=== PATIENT | female | born 1970 | race Caucasian/White ===

== ENCOUNTER 2020-06-20 14:06 | Emergency (ER) | payer BC ==
[2020-06-20 15:14] LABS: Absolute Lymphocytes (CBC) 0.8 K/uL (0.7-4.9); Basophils % 0.8 % (0-1.3); Lymphocytes % 20.6 % (15.3-44.8); MPV 8.9 fL (7.6-11.3); RBC Red Blood Cell Count 4.77 M/uL (3.86-4.86)
--- NOTE | 2020-06-20 15:26 | RAD REPORT ---
EXAM DESCRIPTION: RAD - Chest Single View - 06/20/2020 2:58 pm CLINICAL HISTORY: Cough;SOB Chest pain. COMPARISON: No comparisons FINDINGS: Portable technique limits examination quality. Small linear opacity in left lung base is likely a small area of atelectasis. No focal infiltrate yanci picious for pneumonia seen. The heart is normal in size. No displaced fractures.
[2020-06-20] MEDS ORDERED: MORPHINE 4 MG/ML SYR ONE (15:28)
[2020-06-20] MEDS ORDERED: NA CHLORIDE 0.9% 1,000 ML ONE (15:28)
[2020-06-20] MEDS ORDERED: ONDANSETRON 4 MG/2 ML VIAL ONE (15:28)
[2020-06-20] MEDS ORDERED: dexAMETHasone 10 MG/ML VIAL ONE (15:28)
[2020-06-20 15:33] LABS: C-Reactive Protein 19.1 mg/L (<3.00); Potassium 3.8 mmol/L (3.5-5.1)
--- NOTE | 2020-06-20 16:32 | EDPHYS ---
Physician Documentation [facility] Name: Johana Packer Age: 50 yrs Sex: Female : 1970 Arrival Date: 06/20/2020 Time: 14:08 Bed 4 Private MD: ED Physician Deuce Dunham HPI: 06/20 15:21 This 50 yrs old Female presents to ER via Wheelchair with complaints of pm1 Shortness Of Breath, Body Aches, Vomiting. 15:21 The patient has shortness of breath at rest, with light activity. Onset: The pm1 symptoms/episode began/occurred 1 week(s) ago. Duration: The symptoms are continuous. The patient's shortness of breath is aggravated by light activity, is alleviated by nothing. Associated signs and symptoms: Pertinent positives: non-productive cough, fever, vomiting, Diarrhea. Severity of symptoms: in the emergency department the symptoms are worse. The patient has been recently seen by a physician: the patient's primary care provider, Dr. Sahu earlier today, with similar presenting complaints, and was sent to the [facility] Emergency Department for further evaluation, Patient was vomiting during attempt to get covid test. Patient has had 2 negative covid tests. 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 - Social history:: Smoking status: Reported history of juuling and/or vaping. Patient/guardian denies using tobacco, the patient reports quitting approximately 7 years ago. ROS: 15:21 Neck: Negative for injury, pain, and swelling, Cardiovascular: Negative for chest pain, pm1 palpitations, and edema. 15:21 Back: Negative for injury and pain, : Negative for injury, bleeding, discharge, and swelling, MS/Extremity: Negative for injury and deformity, Skin: Negative for injury, rash, and discoloration, Neuro: Negative for headache, weakness, numbness, tingling, and seizure. 15:21 Constitutional: Positive for body aches, fever, poor PO intake. 15:21 ENT: Positive for change of taste, Negative for ear pain, sore throat, difficulty swallowing, difficulty handling secretions, hoarseness. 15:21 Respiratory: Positive for cough, shortness of breath. 15:21 Abdomen/GI: Positive for vomiting, diarrhea, Negative for abdominal pain, constipation. Exam: 15:21 Constitutional: This is a well developed, well nourished patient who is awake, alert, pm1 and in no acute distress. Head/Face: Normocephalic, atraumatic. Chest/axilla: Normal chest wall appearance and motion. Nontender with no deformity. No lesions are appreciated. 15:21 Skin: Warm, dry with normal turgor. Normal color with no rashes, no lesions, and no evidence of cellulitis. MS/ Extremity: Pulses equal, no cyanosis. Neurovascular intact. Full, normal range of motion. 15:21 Cardiovascular: Exam negative for acute changes, Rate: normal, Rhythm: regular, Pulses: no pulse deficits are appreciated. 15:21 Respiratory: Exam negative for acute changes, respiratory distress, shortness of breath. 15:21 Abdomen/GI: Exam negative for acute changes, Inspection: abdomen appears normal, Palpation: abdomen is soft and non-tender, in all quadrants. 15:21 Neuro: Orientation: is normal, Mentation: is normal, Motor: is normal, moves all fours. Vital Signs: 14:19 BP 109 / 83; Pulse 98; Resp 22 S; Temp 97.9(TE); Pulse Ox 96% on R/A; Weight 94.35 kg ca1 (R); Height 5 ft. 9 in. (175.26 cm) (R); 15:25 BP 125 / 65; Pulse 74; Resp 16; Pulse Ox 95% ; bp 16:50 BP 131 / 67; Pulse 73; Resp 16; Temp 98.1; Pulse Ox 96% ; bp 14:19 Body Mass Index 30.72 (94.35 kg, 175.26 cm) ca1 MDM: 14:24 Patient medically screened. pm1 15:30 Data reviewed: vital signs. Data interpreted: Pulse oximetry: on room air is 95 %. pm1 Interpretation: normal. 16:31 Counseling: I had a detailed discussion with the patient and/or guardian regarding: the pm1 historical points, exam findings, and any diagnostic results supporting the discharge/admit diagnosis, lab results, radiology results, the need for outpatient follow up, to return to the emergency department if symptoms worsen or persist or if there are any questions or concerns that arise at home. 06/20 14:46 Order name: COVID-19 pm1 06/20 14:46 Order name: Flu; Complete Time: 16:31 pm1 06/20 14:46 Order name: Strep; Complete Time: 16:25 pm1 06/20 14:46 Order name: Basic Metabolic Panel; Complete Time: 15:36 pm1 06/20 14:46 Order name: CBC with Diff; Complete Time: 15:30 pm1 06/20 14:46 Order name: CRP; Complete Time: 15:36 pm1 06/20 14:46 Order name: CXR XRAY; Complete Time: 15:30 pm1 06/20 14:46 Order name: O2 Per Protocol; Complete Time: 14:49 pm1 06/20 14:46 Order name: IV Saline Lock; Complete Time: 15:10 pm1 06/20 16:25 Order name: Throat Culture [facility] 06/20 14:46 Order name: Labs collected and sent; Complete Time: 15:10 pm1 Administered Medications: 15:05 Drug: NS 0.9% 1000 ml Route: IV; Rate: 1000 ml; Site: right forearm; bp 16:51 Follow up: IV Status: Completed infusion; IV Intake: 1000ml bp 15:05 Drug: Decadron - Dexamethasone 10 mg Route: IVP; Site: right forearm; bp 16:52 Follow up: Response: No adverse reaction bp 15:05 Drug: morphine 4 mg Route: IVP; Site: right forearm; bp 16:52 Follow up: Response: Pain is decreased bp 15:05 Drug: Zofran (Ondansetron) 4 mg Route: IVP; Site: right forearm; bp 16:52 Follow up: Response: No adverse reaction bp Disposition: 06/21 08:21 Co-signature as Attending Physician, Deuce Dunham MD I agree with the assessment and lucila plan of care. Disposition: 06/20/20 16:32 Discharged to Home. Impression: Acute upper respiratory infection, unspecified, Vomiting, Diarrhea, unspecified. - Condition is Stable. - Discharge Instructions: Food Choices to Help Relieve Diarrhea, Adult, Diarrhea, Adult, Upper Respiratory Infection, Adult, Vomiting, Adult, COVID-19. - Prescriptions for Prednisone 20 mg Oral Tablet - take 1 tablet by ORAL route every 12 hours for 10 days; 20 tablet. Albuterol Sulfate 90 mcg/actuation - inhale 1-2 puff by INHALATION route every 4-6 hours; 1 Inhaler. Guaifenesin AC 10- 100 mg/5 mL Oral Liquid - take 10 milliliter by ORAL route every 4 hours As needed; 240 milliliter. Zofran 4 mg Oral Tablet - take 1 tablet by ORAL route every 12 hours As needed; 20 tablet. - Medication Reconciliation Form, Thank You Letter, Antibiotic Education, Prescription Opioid Use form. - Follow up: Emergency Department; When: As needed; Reason: Worsening of condition. Follow up: Private Physician; When: 2 - 3 days; Reason: Recheck today's complaints, Continuance of care, Re-evaluation by your physician. - Problem is new. - Symptoms have improved. Signatures: Dispatcher [employer] EDMS Deuce Dunham MD MD cha Marinas, Patrick, NP SCREEN REPAIRER CRUSHER pm1 Paddy Smith RN RN bp Acob, Cheryl, RN RN ca1 Corrections: (The following items were deleted from the chart) 06/20 17:01 16:32 06/20/2020 16:32 Discharged to Home. Impression: Acute upper respiratory bp infection, unspecified; Vomiting; Diarrhea, unspecified. Condition is Stable. Discharge Instructions: Upper Respiratory Infection, Adult, COVID-19. Prescriptions for Prednisone 20 mg Oral Tablet - take 1 tablet by ORAL route every 12 hours for 10 days; 20 tablet, Albuterol Sulfate 90 mcg/actuation - inhale 1-2 puff by INHALATION route every 4-6 hours; 1 Inhaler, Guaifenesin AC 10-100 mg/5 mL Oral Liquid - take 10 milliliter by ORAL route every 4 hours As needed; 240 milliliter. and Forms are Medication Reconciliation Form, Thank You Letter, Antibiotic Education, Prescription Opioid Use. Follow up: Emergency Department; When: As needed; Reason: Worsening of condition. Follow up: Private Physician; When: 2 - 3 days; Reason: Recheck today's complaints, Continuance of care, Re-evaluation by your physician. Problem is new. Symptoms have improved. pm1
--- NOTE | 2020-06-20 16:32 | ER ---
Nurse's Notes [facility] Name: Johana Packer Age: 50 yrs Sex: Female : 1970 Arrival Date: 06/20/2020 Time: 14:08 Bed 4 Private MD: Diagnosis: Acute upper respiratory infection, unspecified;Vomiting;Diarrhea, unspecified Presentation: 06/20 14:19 Chief complaint: Patient states: SOB x 1 week, worse in the last 3 days. Cough x 5 ca1 days. N/V today. Diarrhea x 1 week. Denies fever. Chest mccarthy and sore throat just today. COVID negative 2x. last collection 06/16/2020. Coronavirus screen: Client denies travel out of the [place] in the last 14 days. cough unrelated to allergies, diarrhea, nausea, shortness of breath, vomiting. The client reports previous COVID testing was negative. Date of collection: June 16, 2020. Ebola Screen: Patient negative for fever greater than or equal to 101.5 degrees Fahrenheit, and additional compatible Ebola Virus Disease symptoms Patient denies exposure to infectious person. Patient denies travel to an Ebola-affected area in the 21 days before illness onset. No symptoms or risks identified at this time. Initial Sepsis Screen: Does the patient meet any 2 criteria? No. Patient's initial sepsis screen is negative. Does the patient have a suspected source of infection? No. Patient's initial sepsis screen is negative. Risk Assessment: Do you want to hurt yourself or someone else? Patient reports no desire to harm self or others. Onset of symptoms was June 20, 2020. 14:19 Method Of Arrival: Wheelchair ca1 14:19 Acuity: JAYLA 3 ca1 Triage Assessment: 14:20 General: Appears distressed, uncomfortable, ill, obese, Behavior is cooperative, bp appropriate for age, anxious. Pain: Complains of pain in GENERALIZED. EENT: Reports nasal congestion. Neuro: No deficits noted. Cardiovascular: No deficits noted. Respiratory: Reports cough that is Onset: The symptoms/episode began/occurred at an unknown time. the patient has mild shortness of breath. GI: Abdomen is non-distended, Reports nausea, vomiting. : No signs and/or symptoms were reported regarding the genitourinary system. Derm: No deficits noted. Musculoskeletal: No deficits noted. 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 - Social history:: Smoking status: Reported history of juuling and/or vaping. Patient/guardian denies using tobacco, the patient reports quitting approximately 7 years ago. Screenin:00 Abuse screen: Denies threats or abuse. Denies injuries from another. Nutritional bp screening: No deficits noted. Tuberculosis screening: No symptoms or risk factors identified. Fall Risk None identified. Assessment: 14:20 General: SEE TRIAGE NOTE. Pain: Complains of pain in GENERALIZED. Cardiovascular: bp Rhythm is sinus rhythm. Respiratory: Airway is patent Respiratory effort is even, labored, Respiratory pattern is hyperventilation Breath sounds are coarse bilaterally. 15:25 Reassessment: ALL CURRENT ORDERS COMPLETE, IVF INFUSING. bp 16:50 Reassessment: PT D/C HOME AMBULATORY, DX WITH VIRAL URI. bp Vital Signs: 14:19 BP 109 / 83; Pulse 98; Resp 22 S; Temp 97.9(TE); Pulse Ox 96% on R/A; Weight 94.35 kg ca1 (R); Height 5 ft. 9 in. (175.26 cm) (R); 15:25 BP 125 / 65; Pulse 74; Resp 16; Pulse Ox 95% ; bp 16:50 BP 131 / 67; Pulse 73; Resp 16; Temp 98.1; Pulse Ox 96% ; bp 14:19 Body Mass Index 30.72 (94.35 kg, 175.26 cm) ca1 ED Course: 14:08 Patient arrived in ED. as 14:11 Paddy Smith, RN is Primary Nurse. bp 14:22 Triage completed. ca1 14:22 Arm band placed on right wrist. ca1 14:24 Ben Live NP is PHCP. pm1 14:24 Deuce Dunham MD is Attending Physician. pm1 14:58 CXR XRAY In Process Unspecified. EDMS 15:00 Patient has correct armband on for positive identification. Bed in low position. Call bp light in reach. Side rails up X2. 15:05 Inserted saline lock: 20 gauge in right forearm, using aseptic technique. Blood bp collected. 16:50 No provider procedures requiring assistance completed. IV discontinued, intact, bp bleeding controlled, No redness/swelling at site. Pressure dressing applied. Administered Medications: 15:05 Drug: NS 0.9% 1000 ml Route: IV; Rate: 1000 ml; Site: right forearm; bp 16:51 Follow up: IV Status: Completed infusion; IV Intake: 1000ml bp 15:05 Drug: Decadron - Dexamethasone 10 mg Route: IVP; Site: right forearm; bp 16:52 Follow up: Response: No adverse reaction bp 15:05 Drug: morphine 4 mg Route: IVP; Site: right forearm; bp 16:52 Follow up: Response: Pain is decreased bp 15:05 Drug: Zofran (Ondansetron) 4 mg Route: IVP; Site: right forearm; bp 16:52 Follow up: Response: No adverse reaction bp Intake: 16:51 IV: 1000ml; Total: 1000ml. bp Outcome: 16:32 Discharge ordered by MD. pm1 16:50 Discharged to home ambulatory. bp 16:50 Condition: stable 16:50 Discharge instructions given to patient, Instructed on discharge instructions, follow up and referral plans. medication usage, Demonstrated understanding of instructions, follow-up care, medications, Prescriptions given X 4. 17:01 Patient left the ED. bp Addendum: 06/22/2020 14:28 Addendum: COVID-19 Result: Positive result giiven to ED physician to notify pt. Other: s s Pt in ER now. Results resulted NOW. Signatures: Dispatcher [employer] EDAZ Margo Louie Shelby, RN RN ss Ben Live NP CLAIM PROCESSING SPECIALIST pm1 Paddy Smith RN RN bp Pretty Bobby RN RN ca1
[2020-06-20 17:45] VITALS: BP 131/67; TEMP 98.1; O2SAT 96
== END 2020-06-20 17:01 | disposition home or self-care (01) ==
LOC: ER 14:06
DX: U07.1 COVID-19 (principal); J06.9 Acute upper respiratory infection, unspecified; R11.10 Vomiting, unspecified; R19.7 Diarrhea, unspecified; I10 Essential (primary) hypertension
CPT/HCPCS: 96361; 87070; 85025; 80048; 36415; 87081; 86140; 87804 ×2; 71045; 96375; 96374; 99284; U0002; J1100; J7030; J2405

== ENCOUNTER 2020-06-22 12:22 | Emergency (ER) | payer BC, OTHER ==
[2020-06-22] MEDS ORDERED: NA CHLORIDE 0.9% 1,000 ML ONE (12:59)
[2020-06-22] MEDS ORDERED: ONDANSETRON 4 MG/2 ML VIAL ONE (12:59)
[2020-06-22 13:05] LABS: Absolute Lymphocytes (CBC) 0.7 K/uL (0.7-4.9); Basophils % 0.2 % (0-1.3); Hematocrit 39.6 % (36.0-45.0); Lymphocytes % 6.5 % (15.3-44.8); MPV 8.8 fL (7.6-11.3); RBC Red Blood Cell Count 4.69 M/uL (3.86-4.86)
[2020-06-22 13:30] LABS: C-Reactive Protein 46.4 mg/L (<3.00); Ferritin 647.6 ng/mL (8-388); Potassium 4.2 mmol/L (3.5-5.1)
[2020-06-22 13:40] LABS: Blood Morphology Comment NOT SEEN (NOT SEEN); Platelet Estimate ADEQ; White Blood Cell Scan OK (OK)
[2020-06-22] MEDS ORDERED: dexAMETHasone 10 MG/ML VIAL ONE (14:08)
--- NOTE | 2020-06-22 14:44 | ER ---
Nurse's Notes [facility] Name: Johana Packer Age: 50 yrs Sex: Female : 1970 Arrival Date: 06/22/2020 Time: 12:24 Bed 6 Private MD: Diagnosis: Coronavirus infection, unspecified;Dehydration Presentation: 06/22 12:32 Chief complaint: Patient states: Here Saturday, covid test still pending. Still feels ll1 bad, sick for 11 days. Has increasing FRANKLIN and back pain today. SOB with exertion noted. + nausea. Coronavirus screen: Client denies travel out of the [place] in the last 14 days. cough unrelated to allergies, difficulty breathing, fatigue, nausea, shortness of breath, Client presents with at least one sign or symptom that may indicate coronavirus-19. Standard/surgical mask placed on the client. The client indicates previous COVID test results are pending. Ebola Screen: Patient denies travel to an Ebola-affected area in the 21 days before illness onset. Initial Sepsis Screen: Does the patient meet any 2 criteria? No. Patient's initial sepsis screen is negative. Risk Assessment: Do you want to hurt yourself or someone else? Patient reports no desire to harm self or others. Onset of symptoms was June 11, 2020. 12:32 Method Of Arrival: Wheelchair ll1 12:32 Acuity: JAYLA 3 ll1 14:11 Initial Sepsis Screen: Does the patient have a suspected source of infection? No. sv Patient's initial sepsis screen is negative. Historical: - Allergies: 12:35 No Known Allergies; ll1 - PMHx: 12:35 Anxiety; High Cholesterol; Hypertension; ll1 - Immunization history:: Flu vaccine is up to date. - Social history:: Smoking status: Patient denies any tobacco usage or history of. Patient/guardian denies using alcohol, street drugs. - Family history:: not pertinent. - Hospitalizations: : No recent hospitalization is reported. Screenin:50 Abuse screen: Denies threats or abuse. Denies injuries from another. Nutritional sv screening: No deficits noted. Tuberculosis screening: No symptoms or risk factors identified. Fall Risk None identified. Assessment: 12:50 General: Appears in no apparent distress. uncomfortable, well developed, Behavior is sv calm, cooperative, appropriate for age. Pain: Complains of pain in face, scalp and back Pain currently is 6 out of 10 on a pain scale. Quality of pain is described as throbbing, Is continuous. Neuro: Level of Consciousness is awake, alert, obeys commands, Oriented to person, place, time, situation, Moves all extremities. Full function Gait is steady, Speech is normal, Reports headache. Respiratory: Airway is patent Respiratory effort is even, unlabored, Respiratory pattern is regular, symmetrical. Derm: Skin is intact, Skin is pink, warm \T\ dry. 14:02 Reassessment: Patient appears in no apparent distress at this time. No changes from sv previously documented assessment. Patient and/or family updated on plan of care and expected duration. Pain level reassessed. Patient is alert, oriented x 3, equal unlabored respirations, skin warm/dry/pink. 14:57 Reassessment: Patient appears in no apparent distress at this time. No changes from sv previously documented assessment. Patient and/or family updated on plan of care and expected duration. Pain level reassessed. Patient is alert, oriented x 3, equal unlabored respirations, skin warm/dry/pink. Vital Signs: 12:32 BP 115 / 67; Pulse 78; Resp 20; Temp 98.5; Pulse Ox 95% on R/A; Pain 6/10; ll1 13:22 BP 105 / 53; Pulse 57; Resp 20; Pulse Ox 97% on R/A; sv 14:11 BP 101 / 40; Pulse 61; Resp 16; Pulse Ox 97% on R/A; sv 14:57 BP 101 / 55; Pulse 60; Resp 20; Pulse Ox 98% on R/A; sv ED Course: 12:24 Patient arrived in ED. mr 12:27 Rui Cuevas MD is Attending Physician. rn 12:34 Triage completed. ll1 12:35 Arm band placed on Patient placed in an exam room, on a stretcher. ll1 12:44 Erendira Cuevas, NORM is Primary Nurse. sv 12:50 Patient has correct armband on for positive identification. Bed in low position. Call sv light in reach. Pulse ox on. NIBP on. Door closed. Head of bed elevated. 12:50 Inserted saline lock: 22 gauge in right hand, using aseptic technique. Blood collected. sv Flushed right hand with 5 ml normal saline. 13:07 X-ray(s) taken. sv 13:21 XRAY Chest (1 view) In Process Unspecified. EDMS 13:38 CBC Smear Scan Sent. sv 14:57 No provider procedures requiring assistance completed. IV discontinued, intact, sv bleeding controlled, No redness/swelling at site. Pressure dressing applied. Administered Medications: 13:00 Drug: NS 0.9% 1000 ml Route: IV; Rate: 1000 ml; Site: right hand; sv 14:03 Follow up: Response: No adverse reaction; IV Status: Completed infusion; IV Intake: hb 1000ml 13:01 Drug: Zofran (Ondansetron) 4 mg Route: IVP; Site: right hand; sv 13:55 Follow up: Response: No adverse reaction sv 14:02 Drug: Decadron - Dexamethasone 10 mg Route: IVP; Site: right hand; sv 14:46 Follow up: Response: No adverse reaction hb Intake: 14:03 IV: 1000ml; Total: 1000ml. hb Outcome: 14:43 Discharge ordered by . rn 14:57 Discharged to home ambulatory, pt waiting for her transportation home to get here sv 14:57 Condition: stable 14:57 Discharge instructions given to patient, Instructed on discharge instructions, follow up and referral plans. stay hydrated Demonstrated understanding of instructions, follow-up care. 15:52 Patient left the ED. sv Signatures: Dispatcher [employer] Erendira Gustafson, RN Tesha Juan Roman, MD MD rn Baxter, Heather, RN RN hb Lewis, Lynsay, RN RN ll1
--- NOTE | 2020-06-22 14:44 | EDPHYS ---
Physician Documentation [facility] Name: Johana Packer Age: 50 yrs Sex: Female : 1970 Arrival Date: 06/22/2020 Time: 12:24 Bed 6 Private MD: ED Physician Rui Cuevas HPI: 06/22 12:38 This 50 yrs old Female presents to ER via Wheelchair with complaints of rn Headache, chills, sob, cough, back pain. 12:38 Reports mother with COVID recently, patient began feeling ill 11 days ago, had neg rn COVID test, seen here 2 days ago and tested again, no results. + headache, chills, nausea, vomiting, cough, sob, muscle aches, fatigue, diarrhea. . Onset: The symptoms/episode began/occurred 11 day(s) ago. Severity of symptoms: At their worst the symptoms were moderate in the emergency department the symptoms are unchanged. The patient has not experienced similar symptoms in the past. The patient has been recently seen at the [facility] Emergency Department. Historical: - Allergies: 12:35 No Known Allergies; ll1 - PMHx: 12:35 Anxiety; High Cholesterol; Hypertension; ll1 - Immunization history:: Flu vaccine is up to date. - Social history:: Smoking status: Patient denies any tobacco usage or history of. Patient/guardian denies using alcohol, street drugs. - Family history:: not pertinent. - Hospitalizations: : No recent hospitalization is reported. ROS: 12:38 Constitutional: + chills Eyes: Negative for injury, pain, redness, and discharge, Neck: rn Negative for injury, pain, and swelling, Cardiovascular: Negative for chest pain, palpitations, and edema, Respiratory: + cough and sob Abdomen/GI: + nausea/vomiting/diarrhea : Negative for injury, bleeding, discharge, and swelling, MS/Extremity: Negative for injury and deformity, Skin: Negative for injury, rash, and discoloration, Neuro: Negative for numbness, tingling, and seizure. Exam: 12:38 Constitutional: This is a well developed, well nourished patient who is awake, alert, rn and in no acute distress. Head/Face: Normocephalic, atraumatic. ENT: dry MM Cardiovascular: Regular rate and rhythm. No pulse deficits. Respiratory: + mild tachypnea Abdomen/GI: soft, non-tender Skin: Warm, dry MS/ Extremity: Pulses equal, no cyanosis. Neuro: Awake and alert, GCS 15, oriented to person, place, time, and situation. Cranial nerves II-XII grossly intact. Motor strength 5/5 in all extremities. Sensory grossly intact. Cerebellar exam normal. Vital Signs: 12:32 BP 115 / 67; Pulse 78; Resp 20; Temp 98.5; Pulse Ox 95% on R/A; Pain 6/10; ll1 13:22 BP 105 / 53; Pulse 57; Resp 20; Pulse Ox 97% on R/A; sv 14:11 BP 101 / 40; Pulse 61; Resp 16; Pulse Ox 97% on R/A; sv 14:57 BP 101 / 55; Pulse 60; Resp 20; Pulse Ox 98% on R/A; sv MDM: 12:27 Patient medically screened. rn 14:17 Differential Diagnosis COVID. Data reviewed: vital signs, nurses notes, lab test rn result(s), radiologic studies, plain films, and as a result, I will discharge patient. Counseling: I had a detailed discussion with the patient and/or guardian regarding: the historical points, exam findings, and any diagnostic results supporting the discharge/admit diagnosis, lab results, radiology results, the need for outpatient follow up, to return to the emergency department if symptoms worsen or persist or if there are any questions or concerns that arise at home. Response to treatment: the patient's symptoms have mildly improved after treatment, and as a result, I will discharge patient. 14:41 Special discussion: I discussed with the patient/guardian in detail that at this point rn there is no indication for admission to the hospital. It is understood, however, that if the symptoms persist or worsen the patient needs to return immediately for re-evaluation. ED course: Pt with COVID-19 + results, notified earlier today, labs consistent with diagnosis, no oxygen requirement, already on steroids from 2 days ago, will dc home with pcp f/u and return precautions.. 06/22 12:37 Order name: CBC with Diff; Complete Time: 13:50 rn 06/22 12:37 Order name: Basic Metabolic Panel; Complete Time: 13:50 rn 06/22 12:37 Order name: Procalcitonin; Complete Time: 13:50 rn 06/22 12:37 Order name: Ferritin; Complete Time: 13:50 rn 06/22 12:37 Order name: CRP; Complete Time: 13:50 rn 06/22 12:37 Order name: IV Start; Complete Time: 13:01 rn 06/22 12:37 Order name: XRAY Chest (1 view) rn 06/22 13:08 Order name: CBC Smear Scan; Complete Time: 13:50 EDMS Administered Medications: 13:00 Drug: NS 0.9% 1000 ml Route: IV; Rate: 1000 ml; Site: right hand; sv 14:03 Follow up: Response: No adverse reaction; IV Status: Completed infusion; IV Intake: hb 1000ml 13:01 Drug: Zofran (Ondansetron) 4 mg Route: IVP; Site: right hand; sv 13:55 Follow up: Response: No adverse reaction sv 14:02 Drug: Decadron - Dexamethasone 10 mg Route: IVP; Site: right hand; sv 14:46 Follow up: Response: No adverse reaction hb Disposition: 06/22/20 14:43 Discharged to Home. Impression: Coronavirus infection, unspecified, Dehydration. - Condition is Stable. - Discharge Instructions: COVID-19, Dehydration, Adult. - Medication Reconciliation Form, Thank You Letter, Antibiotic Education, Prescription Opioid Use form. - Follow up: Private Physician; When: As needed; Reason: Recheck today's complaints, Re-evaluation by your physician. - Problem is an ongoing problem. - Symptoms have improved. Signatures: Dispatcher [employer] EDMS Erendira Cuevas RN RN Rui Cuevas MD MD rn Lewis, Lynsay, RN RN 1 Maria R Gambino RN Corrections: (The following items were deleted from the chart) 14:43 14:43 06/22/2020 14:43 Discharged to Home. Impression: Coronavirus infection, rn unspecified. Condition is Stable. Discharge Instructions: COVID-19. Forms are Medication Reconciliation Form, Thank You Letter, Antibiotic Education, Prescription Opioid Use. Follow up: Private Physician; When: As needed; Reason: Recheck today's complaints, Re-evaluation by your physician. Problem is an ongoing problem. Symptoms have improved. rn 15:52 14:43 06/22/2020 14:43 Discharged to Home. Impression: Coronavirus infection, sv unspecified; Dehydration. Condition is Stable. Discharge Instructions: COVID-19. Forms are Medication Reconciliation Form, Thank You Letter, Antibiotic Education, Prescription Opioid Use. Follow up: Private Physician; When: As needed; Reason: Recheck today's complaints, Re-evaluation by your physician. Problem is an ongoing problem. Symptoms have improved. rn
[2020-06-22 15:59] VITALS: TEMP 98.5
[2020-06-22 16:02] VITALS: BP 101/55; O2SAT 98
--- NOTE | 2020-06-22 16:34 | RAD REPORT ---
EXAM DESCRIPTION: [facility] Single View06/22/2020 1:20 pm CLINICAL HISTORY: cough COMPARISON: June 20, 2020 FINDINGS: Mild opacity left lung base unchanged Right lung appears clear. The heart is size
== END 2020-06-22 15:52 | disposition home or self-care (01) ==
LOC: ER 12:22
DX: U07.1 COVID-19 (principal); E86.0 Dehydration; I10 Essential (primary) hypertension
CPT/HCPCS: 96361; 85025; 80048; 36415; 82728; 84145; 86140; 71045; 96375; 96374; 99284; J1100; J7030; J2405